=== PATIENT | female | born 1995 | race Caucasian/White ===

== ENCOUNTER 2017-10-16 10:22 | Emergency (ER) | payer OTHER ==
[~2017-10-16] VITALS: Ht 162.6 cm; Wt 90.0 kg
[2017-10-16 10:27] VITALS: BP 148/84; PULSE 95; RESP 16; TEMP 97.8; O2SAT 98
[2017-10-16] MEDS ORDERED: SODIUM CHLOR 0.9% 1000 ML INJ 1,000 ML IV SCH (10:52)
--- NOTE | 2017-10-16 10:58 | PD ---
HPI Chief Complaint: GI Complaint Time Seen by Provider: 10:43 Travel History International Travel<30 days: No Contact w/Intl Traveler<30days: No Traveled to known affect area: No History of Present Illness HPI 22-year-old female presents to the emergency department at approximately 8 weeks with complaint of nausea and vomiting 2 weeks. Says she " cannot keep anything down." She has followed up with her SALMON TROLL FISHER, Dr. Gamez in [facility], and was given dicyclis, which is not working for her. Second . Denies vaginal bleeding, vaginal discharge, vaginal leaking, vaginal odor. Denies dysuria. Denies chest pain, shortness of breath. Reports having some occasional lower abdominal cramping and denies any at this time. Denies fevers. Has had a confirmed ultrasound with her SALMON TROLL FISHER and says she is due in May and she will be 8 weeks tomorrow. Has tried taking dicyclis with no relief of symptoms. Worse with eating and drinking. Better without consuming foods or beverages. Nausea is constant. I symptoms are moderate in severity. Primary care provider is Dr. Heath in [place]. Known allergies. SALMON TROLL FISHER is Dr. Gamez [facility]. History of POTS. Has no other medical complaints. No other modifying factors or associated signs and symptoms. PFSH Past Medical History ?: LMP: 08/18/17 Social History Alcohol Use: No Tobacco Use: No Allergies-Medications (Allergen,Severity, Reaction): Coded Allergies: No Known Allergies (Unverified , 10/16/17) Reported Meds & Prescriptions Reported Meds & Active Scripts Active Zofran Odt (Ondansetron Odt) 4 Mg Tab 4 Mg SL Q8HR PRN Keflex (Cephalexin) 500 Mg Cap 500 Mg PO Q12H 7 Days Review of Systems Except as stated in HPI: all other systems reviewed are Neg Physical Exam Narrative GENERAL: Well-nourished, well-developed female patient, in no acute distress; afebrile SKIN: Warm and dry. HEAD: Atraumatic. Normocephalic. EYES: Pupils equal and round. No scleral icterus. No injection or drainage. ENT: Mucosa pink and moist. Airway patent. NECK: Trachea midline. CARDIOVASCULAR: Regular rate and rhythm. No murmur appreciated. RESPIRATORY: No accessory muscle use. Clear to auscultation. Breath sounds equal bilaterally. GASTROINTESTINAL: Abdomen soft, nontender, nondistended. Hepatic and splenic margins not palpable. Bowel sounds are active 4 quadrants. Nonrigid. No guarding. BACK: No CVA tenderness. MUSCULOSKELETAL: No obvious deformities. No clubbing. No cyanosis. No edema. NEUROLOGICAL: Awake and alert. Oriented 3. No obvious cranial nerve deficits. Motor grossly within normal limits. Normal speech. PSYCHIATRIC: Appropriate mood and affect; insight and judgment normal. Data Data Last Documented VS Vital Signs Date Time Temp Pulse Resp B/P (MAP) Pulse Ox O2 Delivery O2 Flow Rate FiO2 10/16/17 10:39 18 10/16/17 10:27 97.8 95 148/84 (105) 98 Orders Orders Beta Hcg (Quant/Titer) (10/16/17 10:52) Complete Blood Count With Diff (10/16/17 10:52) Comprehensive Metabolic Panel (10/16/17 10:52) Urinalysis - C+S If Indicated (10/16/17 10:52) Sodium Chlor 0.9% 1000 Ml Inj (Ns 1000 M (10/16/17 10:52) Sodium Chloride 0.9% Flush (Ns Flush) (10/16/17 11:00) Ondansetron Odt (Zofran Odt) (10/16/17 11:00) Urine Culture (10/16/17 11:10) Cephalexin (Keflex) (10/16/17 14:00) Ondansetron Odt (Zofran Odt) (10/16/17 14:15) Ceftriaxone Inj (Rocephin Inj) (10/16/17 14:15) Ed Discharge Order (10/16/17 14:22) Labs Laboratory Tests Test 10/16/17 11:10 White Blood Count 11.4 TH/MM3 Red Blood Count 5.04 MIL/MM3 Hemoglobin 14.2 GM/DL Hematocrit 42.5 % Mean Corpuscular Volume 84.3 FL Mean Corpuscular Hemoglobin 28.2 PG Mean Corpuscular Hemoglobin Concent 33.5 % Red Cell Distribution Width 13.6 % Platelet Count 282 TH/MM3 Mean Platelet Volume 9.3 FL Neutrophils (%) (Auto) 75.9 % Lymphocytes (%) (Auto) 17.0 % Monocytes (%) (Auto) 5.1 % Eosinophils (%) (Auto) 1.3 % Basophils (%) (Auto) 0.7 % Neutrophils # (Auto) 8.6 TH/MM3 Lymphocytes # (Auto) 1.9 TH/MM3 Monocytes # (Auto) 0.6 TH/MM3 Eosinophils # (Auto) 0.1 TH/MM3 Basophils # (Auto) 0.1 TH/MM3 CBC Comment DIFF FINAL Differential Comment Urine Color DARK-YELLOW Urine Turbidity HAZY Urine pH 6.0 Urine Specific [place] 1.043 Urine Protein 30 mg/dL Urine Glucose (UA) NEG mg/dL Urine Ketones 150 mg/dL Urine Occult Blood NEG Urine Nitrite NEG Urine Bilirubin NEG Urine Urobilinogen 8.0 MG/DL Urine Leukocyte Esterase LARGE Urine RBC 9 /hpf Urine WBC 2 /hpf Urine Squamous Epithelial Cells 30 /hpf Urine Transitional Epithelial Cells <1 /hpf Urine Bacteria MOD /hpf Urine Mucus MANY /lpf Microscopic Urinalysis Comment CULTURE INDICATED Blood Urea Nitrogen 7 MG/DL Creatinine 0.55 MG/DL Random Glucose 87 MG/DL Total Protein 7.6 GM/DL Albumin 3.6 GM/DL Calcium Level 9.3 MG/DL Alkaline Phosphatase 87 U/L Aspartate Amino Transf (AST/SGOT) 30 U/L Alanine Aminotransferase (ALT/SGPT) 73 U/L Total Bilirubin 0.6 MG/DL Sodium Level 136 MEQ/L Potassium Level 3.7 MEQ/L Chloride Level 104 MEQ/L Carbon Dioxide Level 19.6 MEQ/L Anion Gap 12 MEQ/L Estimat Glomerular Filtration Rate 138 ML/MIN Human Chorionic Gonadotropin, Quant 94503 MIU/ML [facility] Medical Decision Making Medical Screen Exam Complete: Yes Emergency Medical Condition: Yes Medical Record Reviewed: Yes Differential Diagnosis Nausea and vomiting during , urinary tract infection, medical clearance Narrative Course 22-year-old female approximately 8 weeks with nausea and vomiting for the past 2 weeks and unable to keep anything down. Her SALMON TROLL FISHER gave her dicyclis , which is not working for her. She has no abdominal, vaginal, urinary complaints. She is afebrile and nontoxic-appearing. Denies fever. Discussed the patient with my attending physician, Dr. Posadas, and plan of care discussed. CBC, CMP, beta-hCG, IV, IV fluid bolus, Zofran, urinalysis ordered. 1353: CBC unremarkable. CMP unremarkable. Beta-hCG 58612. Urinalysis with signs of infection. Patient complaining of continued nausea. Second dose of Zofran ordered. Keflex ordered. Rocephin 1 g IV ordered. 1423: Patient given p.o. challenge has tolerated oral fluids and medications without vomiting. Zofran and Keflex prescribed for home. Instructed patient to follow-up with spanish tutor. Instructed patient to follow up with primary care provider. Patient verbalizes understanding and agreement with treatment plan. Patient is medically cleared and stable for discharge. Discussed reasons to return to the emergency department. Patient agrees with treatment plan. The patients vital signs are stable and the patient is stable for outpatient follow-up and treatment. Patient discharged home, stable and in no acute distress. Diagnosis Primary Impression: Nausea and vomiting during Additional Impression: Urinary tract infection Qualified Codes: N39.0 - Urinary tract infection, site not specified Referrals: Fire Patrol Primary Care Physician Patient Instructions: General Instructions, Nausea and Vomiting in ( ED) Additional Instructions: Take antibiotics as prescribed and complete full course Drink plenty of fluids Maintain good personal hygiene Take Zofran as prescribed for nausea/vomiting Increase fluid intake, starting with clear fluids; advancing to a bland diet as tolerated [place] diet to include crackers, rice, toast, bananas as tolerated, advancing slowly to regular diet Follow-up with primary care provider Follow-up with spanish tutor Return to the emergency department immediately with worsening of symptoms Med/Other Pt SpecificInfo: Prescription(s) given Scripts Ondansetron Odt (Zofran Odt) 4 Mg Tab 4 MG SL Q8HR Y for Nausea/Vomiting, #10 TAB 0 Refills Prov: Rosalva Jimenez 10/16/17 Cephalexin (Keflex) 500 Mg Cap 500 MG PO Q12H for Infection for 7 Days, #14 CAP 0 Refills Prov: Rosalva Jimenez 10/16/17 Disposition: 01 DISCHARGE HOME Condition: Stable Rosalva Jimenez Oct 16, 2017 10:58
[2017-10-16] MEDS ORDERED: SODIUM CHLORIDE 0.9% FLUSH 10 ML FLUSH IV FLUSH PRN (11:00)
[2017-10-16] MEDS ORDERED: ONDANSETRON ODT 4 MG TAB PO ONE ×2 (11:00→14:15)
[2017-10-16 11:39] LABS: AUTOMATED NEUTROPHIL # 8.6 TH/MM3 (1.8-7.7); BASOPHIL # 0.1 TH/MM3 (0-0.2); BASOPHIL % 0.7 % (0.0-2.0); EOSINOPHIL # 0.1 TH/MM3 (0-0.4); EOSINOPHIL % 1.3 % (0.0-4.0); HEMATOCRIT 42.5 % (35.0-46.0); HEMOGLOBIN 14.2 GM/DL (11.6-15.3); LYMPHOCYTE # 1.9 TH/MM3 (1.0-4.8); MEAN CELL VOLUME 84.3 FL (80.0-100.0); MEAN CORPUSCULAR HEMOGLOBIN 28.2 PG (27.0-34.0); MEAN CORPUSCULAR HGB CONC 33.5 % (32.0-36.0); MEAN PLATELET VOLUME 9.3 FL (7.0-11.0); MONO % 5.1 % (0.0-8.0); MONOCYTE # 0.6 TH/MM3 (0-0.9); NEUT % 75.9 % (16.0-70.0); PLATELET COUNT 282 TH/MM3 (150-450); RED BLOOD COUNT 5.04 MIL/MM3 (4.00-5.30); RED CELL DISTRIBUTION WIDTH 13.6 % (11.6-17.2); WHITE BLOOD COUNT 11.4 TH/MM3 (4.0-11.0)
--- NOTE | 2017-10-16 11:39 | PD ---
Physical Exam Date Seen by Provider: Oct 16, 2017 Narrative This is a patient who is suffering from hyperemesis gravidarum. Data Data Last Documented VS Vital Signs Date Time Temp Pulse Resp B/P (MAP) Pulse Ox O2 Delivery O2 Flow Rate FiO2 10/16/17 10:39 18 10/16/17 10:27 97.8 95 148/84 (105) 98 Orders Orders Beta Hcg (Quant/Titer) (10/16/17 10:52) Complete Blood Count With Diff (10/16/17 10:52) Comprehensive Metabolic Panel (10/16/17 10:52) Urinalysis - C+S If Indicated (10/16/17 10:52) Sodium Chlor 0.9% 1000 Ml Inj (Ns 1000 M (10/16/17 10:52) Sodium Chloride 0.9% Flush (Ns Flush) (10/16/17 11:00) Ondansetron Odt (Zofran Odt) (10/16/17 11:00) Labs Laboratory Tests Test 10/16/17 11:10 [facility] Supervised Visit with RAFAEL: Yes Narrative Course I, Dr. Posadas, have reviewed the advance practice practitioner's documentation and am in agreement, met with the patient face to face, made the diagnosis, and the medical decision making was done by me. *My assessment and Findings: Patient is well-hydrated appearing. Her abdomen is soft and nontender throughout. Please see Rosalva Jimenez NP's note for results of laboratory and radiographic evaluation, ED course, final diagnosis and disposition Diagnosis Primary Impression: Nausea and vomiting during Referrals: [employer] System Operator Primary Care Physician Patient Instructions: General Instructions, Nausea and Vomiting in ( ED) Disposition: 01 DISCHARGE HOME Condition: Stable Makayla Posadas MD Oct 16, 2017 11:39
[2017-10-16 12:02] LABS: ALBUMIN 3.6 GM/DL (3.4-5.0); AST (GOT) 30 U/L (15-37); BICARBONATE 19.6 MEQ/L (21.0-32.0); BLOOD UREA NITROGEN 7 MG/DL (7-18); CALCIUM 9.3 MG/DL (8.5-10.1); CHLORIDE 104 MEQ/L (98-107); CREATININE 0.55 MG/DL (0.50-1.00); GLOMERULAR FILTRATION RATE 138 ML/MIN (>89); GLUCOSE,RANDOM 87 MG/DL (74-106); SODIUM (NA) 136 MEQ/L (136-145)
[2017-10-16 12:03] LABS: ALT (GPT) 73 U/L (10-53)
[2017-10-16 12:09] LABS: BACTERIA, URINE MOD /hpf; BLOOD, URINE NEG (NEG); GLUCOSE,URINE NEG (NEG); KETONE, URINE 150 mg/dL (NEG); MUCUS URINE MANY /lpf (OCC); NITRITE,URINE NEG (NEG); SQUAMOUS EPITHELIAL CELL URINE 30 /hpf (0-5); TRANSITIONAL EPI CELLS, URINE <1 /hpf; URINE COLOR DARK-YELLOW (YELLW/STRAW); URINE LEUKOCYTE ESTERASE LARGE (NEG)
[2017-10-16 12:10] LABS: BILIRUBIN, URINE NEG (NEG)
[2017-10-16 12:20] LABS: ALKALINE PHOSPHATASE 87 U/L (45-117); TOTAL BILIRUBIN ADULT 0.6 MG/DL (0.2-1.0); TOTAL PROTEIN 7.6 GM/DL (6.4-8.2)
[2017-10-16] MEDS ORDERED: ZOFR4TAB3 SL (13:56)
[2017-10-16] MEDS ORDERED: CEPH-460 PO (13:56)
[2017-10-16] MEDS ORDERED: CEPHALEXIN MONOHYDRATE 500 MG CAP PO ONE (14:00)
[2017-10-16] MEDS ORDERED: cefTRIAXone INJ 1,000 MG in SODIUM CHLORIDE 0.9% INJ 100 ML IV ONE (14:15)
== END 2017-10-16 14:31 | disposition home or self-care (01) ==
LOC: NEPD 10:22
DX: O21.9 Vomiting of pregnancy, unspecified (principal); O23.41 Unspecified infection of urinary tract in pregnancy, first trimester; Z3A.08 8 weeks gestation of pregnancy; Z34.91 Encounter for supervision of normal pregnancy, unspecified, first trimester
CPT/HCPCS: 80053; 81001; 84702; 85025; 87086; 96361; 96374; 99284; J0696; J7030

== ENCOUNTER 2017-11-04 15:38 | Emergency (ER) | payer OTHER ==
[~2017-11-04] VITALS: Ht 162.6 cm; Wt 85.0 kg
[~2017-11-04 15:38] MED LIST: CEPH-460 PO; ZOFR4TAB3 SL
[2017-11-04 16:03] VITALS: BP 120/67; PULSE 90; RESP 15; TEMP 98.2; O2SAT 99
[2017-11-04 19:00] VITALS: BP 110/56; PULSE 106; RESP 16; O2SAT 98
[2017-11-04] MEDS ORDERED: SODIUM CHLOR 0.9% 1000 ML INJ 1,000 ML IV ONE (19:06)
[2017-11-04] MEDS ORDERED: ACETAMINOPHEN 325 MG TAB PO ONE (19:15)
--- NOTE | 2017-11-04 19:55 | PD ---
HPI Chief Complaint: Related Problem Time Seen by Provider: 18:58 Travel History International Travel<30 days: No Contact w/Intl Traveler<30days: No Traveled to known affect area: No History of Present Illness HPI 22-year-old female that presents to the ED for evaluation of abdominal pain. Per patient she is about 10 weeks 4 days . Per patient she is been having this pain on her lower pelvis for about 1 day. Per patient when the pain comes which comes in waves gets to be 7 out of 10. Per patient currently is 2 out of 10. Feels more like a pressure currently. She states having some discharge. Apparently she was seen here earlier this month and was treated for UTI. She finished antibiotic and continued to have symptoms and she was evaluated in urgent care where she was told that she had a yeast infection. She finished the treatment for this. Now she has lower abdominal pain. She follows with OB on [address]. She currently denies any nausea or vomiting. No bleeding. She is O+. States having been once before and had a emergency . Per patient she has "POTS from the ". No other medical issues reported at this time. Has not taken anything for this. PFSH Past Medical History Cardiovascular Problems: Yes (POTS) Tetanus Vaccination: Unknown Influenza Vaccination: No ?: Past Surgical History Section: Yes Cholecystectomy: Yes Social History Alcohol Use: No Tobacco Use: No Substance Use: No Allergies-Medications (Allergen,Severity, Reaction): Coded Allergies: No Known Allergies (Unverified , 10/16/17) Reported Meds & Prescriptions Reported Meds & Active Scripts Active Zofran Odt (Ondansetron Odt) 4 Mg Tab 4 Mg SL Q8HR PRN Review of Systems Except as stated in HPI: all other systems reviewed are Neg Physical Exam Narrative GENERAL: SKIN: Warm and dry. HEAD: Atraumatic. Normocephalic. EYES: Pupils equal and round. No scleral icterus. No injection or drainage. ENT: No nasal bleeding or discharge. Mucous membranes pink and moist. Tongue is midline. No uvula deviation. NECK: Trachea midline. No JVD. CARDIOVASCULAR: Regular rate and rhythm. RESPIRATORY: No accessory muscle use. Clear to auscultation. Breath sounds equal bilaterally. GASTROINTESTINAL: Abdomen soft, non-tender, nondistended. Hepatic and splenic margins not palpable. Pelvic exam: Done with female nurse present. Greenish/ white discharge noted. No adnexal tenderness. MUSCULOSKELETAL: Extremities without clubbing, cyanosis, or edema. No obvious deformities. Full range of motion of the upper and lower extremities bilaterally. 2+ pulses bilaterally. NEUROLOGICAL: Awake and alert. No obvious cranial nerve deficits. Motor grossly within normal limits. Five out of 5 muscle strength in the arms and legs. Normal speech. PSYCHIATRIC: Appropriate mood and affect; insight and judgment normal. Data Data Last Documented VS Vital Signs Date Time Temp Pulse Resp B/P (MAP) Pulse Ox O2 Delivery O2 Flow Rate FiO2 11/04/17 21:30 108 16 136/69 (91) 98 Room Air 11/04/17 16:03 98.2 Orders Orders Complete Blood Count With Diff (11/04/17 19:06) Basic Metabolic Panel (Bmp) (11/04/17 19:06) Gc And Chlamydia Pcr (11/04/17 19:06) Us Pelvis (Ques Preg/Ectopic) (11/04/17 ) Wet Prep Profile (11/04/17 19:06) Urinalysis - C+S If Indicated (11/04/17 19:06) Iv Access Insert/Monitor (11/04/17 19:06) Sodium Chlor 0.9% 1000 Ml Inj (Ns 1000 M (11/04/17 19:06) Acetaminophen (Tylenol) (11/04/17 19:15) Urine Culture (11/04/17 19:35) Beta Hcg (Quant/Titer) (11/04/17 20:40) Ceftriaxone Inj (Rocephin Inj) (11/04/17 20:45) Labs Laboratory Tests Test 11/04/17 19:25 11/04/17 19:35 11/04/17 21:25 White Blood Count 13.5 TH/MM3 Red Blood Count 5.12 MIL/MM3 Hemoglobin 14.3 GM/DL Hematocrit 42.8 % Mean Corpuscular Volume 83.6 FL Mean Corpuscular Hemoglobin 27.9 PG Mean Corpuscular Hemoglobin Concent 33.4 % Red Cell Distribution Width 13.6 % Platelet Count 245 TH/MM3 Mean Platelet Volume 9.9 FL Neutrophils (%) (Auto) 78.4 % Lymphocytes (%) (Auto) 15.3 % Monocytes (%) (Auto) 4.5 % Eosinophils (%) (Auto) 1.3 % Basophils (%) (Auto) 0.5 % Neutrophils # (Auto) 10.6 TH/MM3 Lymphocytes # (Auto) 2.1 TH/MM3 Monocytes # (Auto) 0.6 TH/MM3 Eosinophils # (Auto) 0.2 TH/MM3 Basophils # (Auto) 0.1 TH/MM3 CBC Comment DIFF FINAL Differential Comment Blood Urea Nitrogen 4 MG/DL Creatinine 0.58 MG/DL Random Glucose 97 MG/DL Calcium Level 8.9 MG/DL Sodium Level 138 MEQ/L Potassium Level 3.5 MEQ/L Chloride Level 105 MEQ/L Carbon Dioxide Level 19.0 MEQ/L Anion Gap 14 MEQ/L Estimat Glomerular Filtration Rate 130 ML/MIN Human Chorionic Gonadotropin, Quant 48452 MIU/ML Urine Color Denisa Urine Turbidity CLOUDY Urine pH 5.0 Urine Specific [place] 1.035 Urine Protein 100 mg/dL Urine Glucose (UA) 50 mg/dL Urine Ketones 80 OR GREATER mg/dL Urine Occult Blood NEG Urine Nitrite NEG Urine Bilirubin NEG Urine Urobilinogen 2.0 mg/dL Urine Leukocyte Esterase SMALL Urine RBC 5 /hpf Urine WBC 55 /hpf Urine Squamous Epithelial Cells 52 /hpf Urine Bacteria MOD /hpf Urine Mucus MANY /lpf Microscopic Urinalysis Comment CULTURE INDICATED Clue Cells (Wet Prep) NONE SEEN Vaginal Trichomonas (Wet Prep) NONE SEEN Vaginal Yeast (Wet Prep) NONE SEEN MDM Medical Decision Making Medical Screen Exam Complete: Yes Emergency Medical Condition: Yes Medical Record Reviewed: Yes Interpretation(s) Last Impressions Pelvis Ultrasound 11/04/17 0000 Signed Impressions: CONCLUSION: 1. Intrauterine at 10 weeks 2 days CBC & BMP Diagram 11/04/17 19:25 Calcium Level 8.9 beta HCG elevated UA shows signs of infection Differential Diagnosis Miscarriage versus abdominal pain during versus UTI versus acute abdomen versus ectopic Narrative Course 22-year-old female that presents to the ED for evaluation of pelvic pain during . Patient was properly examined and was found to have signs and symptoms of unclear etiology. I recommend pelvic, labs and imaging. Patient agrees. Patient was given Tylenol for her pain. Labs and imaging showed UTI. Labs and imaging only showed intrauterine with what appears to be UTI. Patient was given ceftriaxone IV to help with her infection is apprised has been treated with different antibiotics recently. She will get a prescription for Keflex for the UTI. At this time patient was told to follow- up closely with her CHILDREN'S MINISTRY DIRECTOR and cold work operator. Tylenol for pain. See ED worsening symptoms. Follow-up with PCP. Diagnosis Primary Impression: Normal IUP (intrauterine ) on ultrasound Qualified Codes: Z34.91 - Encounter for supervision of normal , unspecified, first trimester Additional Impressions: UTI (urinary tract infection) Qualified Codes: N30.00 - Acute cystitis without hematuria Pelvic pain affecting Qualified Codes: O26.891 - Other specified related conditions, first trimester; R10.2 - Pelvic and perineal pain Patient Instructions: General Instructions Additional Instructions: Follow with your LEADITE MAN this week. See ED if worsening symptoms. Tylenol for pain as needed. Take medication as prescribed. Med/Other Pt SpecificInfo: Prescription(s) given Disposition: 01 DISCHARGE HOME Condition: Romero Mercado Nov 04, 2017 19:55
[2017-11-04 20:08] LABS: AUTOMATED NEUTROPHIL # 10.6 TH/MM3 (1.8-7.7); BASOPHIL # 0.1 TH/MM3 (0-0.2); BASOPHIL % 0.5 % (0.0-2.0); EOSINOPHIL # 0.2 TH/MM3 (0-0.4); EOSINOPHIL % 1.3 % (0.0-4.0); HEMATOCRIT 42.8 % (35.0-46.0); HEMOGLOBIN 14.3 GM/DL (11.6-15.3); LYMPH % 15.3 % (9.0-44.0); LYMPHOCYTE # 2.1 TH/MM3 (1.0-4.8); MEAN CELL VOLUME 83.6 FL (80.0-100.0); MEAN CORPUSCULAR HEMOGLOBIN 27.9 PG (27.0-34.0); MEAN CORPUSCULAR HGB CONC 33.4 % (32.0-36.0); MEAN PLATELET VOLUME 9.9 FL (7.0-11.0); MONO % 4.5 % (0.0-8.0); MONOCYTE # 0.6 TH/MM3 (0-0.9); NEUT % 78.4 % (16.0-70.0); PLATELET COUNT 245 TH/MM3 (150-450); RED BLOOD COUNT 5.12 MIL/MM3 (4.00-5.30); RED CELL DISTRIBUTION WIDTH 13.6 % (11.6-17.2); WHITE BLOOD COUNT 13.5 TH/MM3 (4.0-11.0)
[2017-11-04 20:33] LABS: CALCIUM 8.9 MG/DL (8.5-10.1); CREATININE 0.58 MG/DL (0.50-1.00)
[2017-11-04 20:38] LABS: BACTERIA, URINE MOD /hpf; BLOOD, URINE NEG (NEG); GLUCOSE,URINE 50 mg/dL (NEG); KETONE, URINE 80 OR GREATER mg/dL (NEG); MUCUS URINE MANY /lpf (OCC); NITRITE,URINE NEG (NEG); SQUAMOUS EPITHELIAL CELL URINE 52 /hpf (0-5); URINE COLOR Amber (YELLW/STRAW); URINE LEUKOCYTE ESTERASE SMALL (NEG)
[2017-11-04 20:39] LABS: BILIRUBIN, URINE NEG (NEG)
[2017-11-04] MEDS ORDERED: cefTRIAXone INJ 1,000 MG in SODIUM CHLORIDE 0.9% INJ 100 ML IV ONE (20:45)
[2017-11-04 21:30] VITALS: BP 136/69; PULSE 108; RESP 16; O2SAT 98
--- NOTE | 2017-11-04 22:33 | RADRPT ---
EXAM DATE: 11/04/2017 10:25 PM EDT AGE/SEX: 22 years / Female INDICATIONS: Pelvic pain during . CLINICAL DATA: This is the patient's initial encounter. Patient reports that signs and symptoms have been present for 1 day and indicates a pain score of 2/10. MEDICAL/SURGICAL HISTORY: . Cholecystectomy. section. COMPARISON: No prior exams available for comparison. TECHNIQUE: Real-time ultrasound of the pelvis was performed using an endovaginal transducer. [id number] MEASUREMENTS: Uterus:__9.8 x 8.6 x 4.9 cm Endometrial Stripe:__10 mm Right Ovary:__ 2.8 x 1.9 x 1.4 cm Left Ovary:__ 2.6 x 2.3 x 1.6 cm FINDINGS: Ultrasound of the pelvis via transabdominal transvaginal approach demonstrates single viable intraute rine with a crown-rump length of 3.7 cm corresponding to a 10 week 2 day gestation. Cardia c activity is identified at 179 beats per minute. No free fluid or adnexal masses are identified. A s mall amount of subchorionic fluid is present. Examination of the right ovary demonstrates no abnormality. Examination of the left ovary demonstrates no abnormality. CONCLUSION: 1. Intrauterine at 10 weeks 2 days Electronically signed by: Shai Silveira MD 11/04/2017 10:31 PM EDT
[2017-11-04] MEDS ORDERED: CEPH-460 PO (22:38)
[2017-11-04 22:52] VITALS: BP 108/65
== END 2017-11-04 22:56 | disposition home or self-care (01) ==
LOC: NEPE 15:38
DX: O23.11 Infections of bladder in pregnancy, first trimester (principal); O26.891 Other specified pregnancy related conditions, first trimester; R10.2 Pelvic and perineal pain; Z3A.10 10 weeks gestation of pregnancy
CPT/HCPCS: 76700; 80048; 81001; 84702; 85025; 87086; 87210; 87491; 87591; 96374; 99285; J0696; J7030